=== PATIENT | male | born 1990 | race Caucasian/White ===

== ENCOUNTER 2016-11-09 17:44 | Inpatient (IN) | payer BC, OTHER ==
[~2016-11-09] VITALS: Ht 170.2 cm; Wt 74.8 kg
[2016-11-09] MEDS ORDERED: LOPERAMIDE HCL 2 MG CAPSULE PO PRN ×2 (20:30)
[2016-11-09] MEDS ORDERED: MAG HYDROX/AL HYDROX/SIMETH 30 ML LIQUID UDC PO PRN (20:30)
[2016-11-09] MEDS ORDERED: DICYCLOMINE HCL 20 MG TABLET PO PRN (20:30)
[2016-11-09] MEDS ORDERED: METHOCARBAMOL 750 MG TABLET PO PRN (20:30)
[2016-11-09] MEDS ORDERED: BUPRENORPHINE HCL 2 MG TAB.SUBL SL PRN (20:30)
[2016-11-09] MEDS ORDERED: MIRALAX 17 GM POWD.PACK PO PRN (20:30)
[2016-11-09] MEDS ORDERED: ACETAMINOPHEN 325 MG TABLET PO PRN (20:30)
[2016-11-09] MEDS ORDERED: HYDROXYZINE PAMOATE 25 MG CAPSULE PO PRN (20:30)
[2016-11-09] MEDS ORDERED: MAGNESIUM HYDROXIDE 30 ML LIQUID UDC PO PRN (20:30)
[2016-11-09] MEDS ORDERED: PROMETHAZINE HCL 25 MG/1 ML VIAL IM PRN (20:30)
[2016-11-09] MEDS ORDERED: CLONIDINE HCL 0.1 MG TABLET PO PRN (20:30)
[2016-11-09] MEDS ORDERED: IBUPROFEN 600 MG TABLET PO PRN (20:30)
[2016-11-09] MEDS ORDERED: ONDANSETRON ODT 4 MG TAB.RAPDIS SL PRN (20:30)
[2016-11-09 20:57] LABS: *AMPHETAMINE, URINE NEGATIVE (NEGATIVE); *BARBITURATE, URINE NEGATIVE (NEGATIVE); *CANNABINOID, URINE POSITIVE (NEGATIVE); *COCCAINE, URINE NEGATIVE (NEGATIVE); *OPIATE, URINE POSITIVE (NEGATIVE); *PHENCYCLIDINE SCREEN,URINE NEGATIVE (NEGATIVE)
[2016-11-09 21:00] VITALS: BP 110/63
[2016-11-09 21:38] LABS: BASOPHILS % (AUTO) 0.6 % (0.0-2.0); EOSINOPHILS # (AUTO) 0.4 K/uL (0.0-0.7); EOSINOPHILS % (AUTO) 6.9 % (0.0-7.0); HEMATOCRIT 41.6 % (40.0-50.0); HEMOGLOBIN 14.2 g/dL (14.0-18.0); LYMPHOCYTES # (AUTO) 1.7 K/uL (0.8-4.8); LYMPHOCYTES % (AUTO) 26.9 % (20.5-51.5); MEAN CORPUSCULAR HEMOGLOBIN 29.6 uug (27.0-31.0); MEAN CORPUSCULAR HGB CONC 34 g/dL (32.0-37.0); MEAN CORPUSCULAR VOLUME 86.6 fL (82.0-92.0); MONOCYTES # (AUTO) 0.8 K/uL (0.1-1.30); MONOCYTES % (AUTO) 12.2 % (0.0-11.0); NEUTROPHILS # (AUTO) 3.4 K/uL (1.8-8.9); NEUTROPHILS % (AUTO) 53.4 % (38.5-71.5); PLATELET COUNT (AUTO) 250 K/uL (150-450); RED BLOOD CELL COUNT(AUTO) 4.81 MIL/uL (4.70-6.10); WHITE BLOOD COUNT (AUTO) 6.3 K/uL (4.0-11.2)
[2016-11-09 21:51] LABS: ALANINE AMINOTRANSFERASE 168 U/L (16-63); ALBUMIN 3.8 g/dL (3.4-5.0); ALKALINE PHOSPHATASE 66 U/L (50-136); ASPARTATE AMINOTRANSFERASE 45 U/L (15-37); BILIRUBIN,TOTAL 0.4 mg/dL (0.2-1.0); CALCIUM 9.1 mg/dL (8.5-10.1); CHLORIDE 103 mmol/L (98-107); GFR 89 mL/min (>60); GLUCOSE 97 mg/dL (74-106); MAGNESIUM 1.9 mg/dL (1.8-2.4); POTASSIUM 3.9 mmol/L (3.5-5.1); SODIUM SERUM 140 mmol/L (136-145); TOTAL PROTEIN, SERUM 7.3 g/dL (6.4-8.2); UREA NITROGEN, BLOOD 11 mg/dL (7-18)
[2016-11-09 21:52] LABS: CARBON DIOXIDE 34 mmol/L (21-32)
[2016-11-09 21:53] LABS: ETHANOL < 3 MG/DL (0-0)
[2016-11-09 22:01] LABS: THYROID STIMULATING HORMONE 0.831 mIU/mL (0.358-3.740)
[2016-11-09 22:11] LABS: HIV-1 p24 ANTIGEN NON REACTIVE (NONREACTIVE); HIV-1/2 ANTIBODY NON REACTIVE (NONREACTIVE)
[2016-11-09] MEDS ORDERED: TERBINAFINE CREAM 24 GM TUBE TP SCH (22:45)
[2016-11-10] VITALS: BP 96/55
[2016-11-10] MEDS ORDERED: TETR15DR86 OP (05:16)
[2016-11-10 08:00] VITALS: BP 99/66
[2016-11-10] MEDS: MULTIVITAMINS,THERAPEUTIC TABLET PO SCH (09:00)
[2016-11-10] MEDS ORDERED: TUBERCULIN,PURIF.PROT.DERIV. 5 TU/0.1 ML TEST ID ONE ×2 (09:00→13:00)
[2016-11-10] MEDS: TERBINAFINE CREAM 24 GM TUBE TP SCH ×2 (09:00→20:32)
[2016-11-10 12:00] VITALS: BP 94/66
[2016-11-10] MEDS: BUPRENORPHINE HCL 2 MG TAB.SUBL SL SCH ×2 (15:32→20:30)
[2016-11-10 16:00] VITALS: BP 114/66
[2016-11-10 20:00] VITALS: BP 110/66
[2016-11-10] MEDS: diphenhydrAMINE 50 MG CAPSULE PO PRN (20:31)
[2016-11-11] VITALS: BP 100/51
[2016-11-11 08:00] VITALS: BP 108/63
[2016-11-11] MEDS: TERBINAFINE CREAM 24 GM TUBE TP SCH ×2 (09:00→22:06)
[2016-11-11] MEDS: BUPRENORPHINE HCL 2 MG TAB.SUBL SL SCH ×3 (09:00→22:05)
[2016-11-11] MEDS: MULTIVITAMINS,THERAPEUTIC TABLET PO SCH (09:00)
[2016-11-11 12:00] VITALS: BP 110/65
[2016-11-11 16:00] VITALS: BP 112/70
[2016-11-11] MEDS ORDERED: BUPRENORPHINE HCL 2 MG TAB.SUBL SL ONE (17:30)
[2016-11-11 20:00] VITALS: BP 113/60
[2016-11-11] MEDS: diphenhydrAMINE 50 MG CAPSULE PO PRN (22:05)
[2016-11-12 08:00] VITALS: BP 106/65
[2016-11-12] MEDS ORDERED: BUPRENORPHINE HCL 2 MG TAB.SUBL SL SCH (09:00)
[2016-11-12] MEDS: TERBINAFINE CREAM 24 GM TUBE TP SCH ×2 (09:00→20:38)
[2016-11-12] MEDS: MULTIVITAMINS,THERAPEUTIC TABLET PO SCH (09:51)
[2016-11-12 12:00] VITALS: BP 119/65
[2016-11-12 16:00] VITALS: BP 123/70
[2016-11-12] MEDS ORDERED: Ibuprofen PO (17:59)
[2016-11-12] MEDS ORDERED: DICY20TA28 PO (17:59)
[2016-11-12] MEDS ORDERED: DIPH50CA37 PO (17:59)
[2016-11-12] MEDS ORDERED: HYDR-3895 PO (17:59)
[2016-11-12] MEDS ORDERED: Terbinafine Hcl TP (17:59)
[2016-11-12 20:00] VITALS: BP 111/72
[2016-11-12 21:45] LABS: *AMPHETAMINE, URINE NEGATIVE (NEGATIVE); *BARBITURATE, URINE NEGATIVE (NEGATIVE); *CANNABINOID, URINE POSITIVE (NEGATIVE); *COCCAINE, URINE NEGATIVE (NEGATIVE); *OPIATE, URINE POSITIVE (NEGATIVE); *PHENCYCLIDINE SCREEN,URINE NEGATIVE (NEGATIVE)
[2016-11-12] MEDS: diphenhydrAMINE 50 MG CAPSULE PO PRN (22:03)
[2016-11-13 04:23] LABS: HCV AB >11.0 s/co ratio (0.0-0.9); HEPATITIS B CORE AB, IgM Negative (Negative); HEPATITIS B SURFACE AG Negative (Negative)
[2016-11-13 08:00] VITALS: BP 104/67
[2016-11-13] MEDS: TERBINAFINE CREAM 24 GM TUBE TP SCH (08:01)
[2016-11-13] MEDS: MULTIVITAMINS,THERAPEUTIC TABLET PO SCH (08:01)
== END 2016-11-13 09:42 | disposition home or self-care (01) | DRG 895 ==
LOC: SRC 19:27
PROVIDERS: ADMIT Internal Medicine; ATTEND Internal Medicine
PROC: HZ2ZZZZ Detoxification Services for Substance Abuse Treatment (ICD-10-PCS; principal; 2016-11-09)
PROC: HZ41ZZZ Group Counseling for Substance Abuse Treatment, Behavioral (ICD-10-PCS; 2016-11-12)
PROC: HZ31ZZZ Individual Counseling for Substance Abuse Treatment, Behavioral (ICD-10-PCS; 2016-11-12)
DX: F11.23 Opioid dependence with withdrawal (principal); E87.3 Alkalosis; Z59.1 Inadequate housing; F41.9 Anxiety disorder, unspecified; G47.00 Insomnia, unspecified; B35.6 Tinea cruris; F17.210 Nicotine dependence, cigarettes, uncomplicated; R74.0 Nonspecific elevation of levels of transaminase and lactic acid dehydrogenase [LDH]; E86.0 Dehydration; F12.90 Cannabis use, unspecified, uncomplicated
CPT/HCPCS: 36415; 70030-TC; 80307; 83735; 84443; 85025; 86580; 86592; 86705; 86803; 87340; 87806; A4663; G6040-TC; Q0163